=== PATIENT | male | born 1980 | race Caucasian/White ===

== ENCOUNTER 2018-09-19 17:55 | Emergency (ER) | payer SELFPAY ==
[~2018-09-19] VITALS: Ht 167.6 cm; Wt 86.2 kg
[2018-09-19] MEDS ORDERED: LACTATED RINGERS 1,000 ML IV ONE (18:31)
[2018-09-19] MEDS ORDERED: NS IV 1000 ML 1,000 ML ONE (18:33)
[2018-09-19 18:39] LABS: BASOPHILS # (AUTO) 0.1 10^3/uL (0.0-0.1); BASOPHILS % (AUTO) 1 % (0-10); EOSINOPHILS # (AUTO) 0.1 10^3/uL (0.0-0.3); EOSINOPHILS % (AUTO) 1 % (0-10); HEMATOCRIT 42 % (40-54); HEMOGLOBIN 14.2 G/DL (13.3-17.7); LYMPHOCYTES # (AUTO) 2.9 X 10^3 (1.0-4.0); LYMPHOCYTES % (AUTO) 42 % (12-44); MEAN CORPUSCULAR HEMOGLOBIN 29 PG (25-34); MEAN CORPUSCULAR HGB CONC 34 G/DL (32-36); MEAN CORPUSCULAR VOLUME 85 FL (80-99); MONOCYTES # (AUTO) 0.5 X 10^3 (0.0-1.0); MONOCYTES % (AUTO) 7 % (0-12); NEUTROPHILS # (AUTO) 3.4 X 10^3 (1.8-7.8); NEUTROPHILS % (AUTO) 49 % (42-75); PLATELET COUNT 272 10^3/uL (130-400); RED CELL DISTRIBUTION WIDTH 12.9 % (10.0-14.5)
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
[2018-09-19] MEDS ORDERED: NS IV 1000 ML 1,000 ML IV SCH (18:45)
--- NOTE | 2018-09-19 18:47 | NUR ---
PT TRANSPORTING TO CT VIA WC ACCOMAPNIED BY CT STAFF.
[2018-09-19 18:52] LABS: ALANINE AMINOTRANSFERASE 16 U/L (0-55); ALBUMIN 4.6 GM/DL (3.2-4.5); ALKALINE PHOSPHATASE 68 U/L (40-136); BILIRUBIN,TOTAL 0.3 MG/DL (0.1-1.0); BUN/CREATININE RATIO 14; CALCIUM 9.7 MG/DL (8.5-10.1); CARBON DIOXIDE 22 MMOL/L (21-32); CHLORIDE 106 MMOL/L (98-107); CREATININE SERUM 0.92 MG/DL (0.60-1.30); GFR ESTIMATED > 60; GLUCOSE 99 MG/DL (70-105); POTASSIUM 3.8 MMOL/L (3.6-5.0); SALICYLATE < 5.0 MG/DL (5.0-20.0); SODIUM 139 MMOL/L (135-145); TOTAL PROTEIN 7.5 GM/DL (6.4-8.2)
--- NOTE | 2018-09-19 18:55 | NUR ---
PT BACK TO ROOM AT THIS TIME.
[2018-09-19 18:58] LABS: ACETAMINOPHEN < 10 UG/ML (10-30)
--- NOTE | 2018-09-19 19:15 | Diagnostic Imaging Report ---
PROCEDURE: CT head without contrast. TECHNIQUE: Multiple contiguous axial images were obtained through the brain without the use of intravenous contrast. INDICATION: Altered mental status. I have no previous for comparison. There is no hydrocephalus and there is no intracranial hemorrhage. Motion degradation limits exam sensitivity and specificity. There is some questionable findings of loss of cortical mason-white matter differentiations and edema in the posterior cortex of the left parietal-occipital lobes; correlate clinically as subtle changes of evolving ischemia could not be excluded. Again, this may be merely reflective of artifact in this motion degraded study. No other potential acute finding. The basilar cisterns are patent. No evidence for elevated intracranial pressures. No abnormal extra-axial fluid collection. The orbits, sinuses, and calvarium unremarkable. IMPRESSION: Limited by motion. Peripheral hypodensity cortex left parieto-occipital lobe seen on images 12 through 18 and may be artifact or reflect subtle edema owing to an evolving ischemic insult. No other potential acute finding revealed. Dictated by: Dictated on workstation # [id number]
--- NOTE | 2018-09-19 19:25 | NUR ---
1924-URINE COLLECTED AND SENT TO LAB 1929- ASKED FOR BLANKET. TECH GAVE BLANKET. 2009-CHECKED IN ON PATIENT AND DENIED ANY NEEDS AT THIS TIME. INFORMED PATIENT AND THAT WE WERE AWAITING RESULTS OF TESTING. 2109- CAME OUT OF ROOM AND INQUIRED WHEN PATIENT WOULD BE SEEN AGAIN BY PHYSICIAN. INFORMED THAT PHYSICIAN IS BUSY WITH EMERGENCY SITUATION AND THAT HE WOULD BE IN SOON POSSIBLE. 2114- STATES THAT SHE WOULD LIKE TO TRANSFER PATIENT SINCE HE HAS "NOT BEEN TREATED". CALMLY EXPLAINED TO THAT THE DOCTOR HAS NOT HAD A CHANCE TO COME BACK AND DISCUSS TREATMENT DUE TO EMERGENT SITUATION. STATES "NO ONE HAS TOLD US THAT EARLIER AND NO ONE CHECKED ON HIM." CALMLY REPLIED TO THAT THIS WAS NOT TRUE I HAD BEEN IN AND ASKED IF THEY NEEDED ANYTHING. ASKED PATIENT TO SIGN AMA PAPERWORK AND STATES "HE IS NOT IN HIS RIGHT MIND TO SIGN ANY PAPERS" THIS RN RESPONDED THAT THEN "PERHAPS IT WOULD BE A GOOD IDEA TO WAIT FOR RESULTS OF TESTING THAT HAS ALREADY BEEN COMPLETED". ASKED THAT IV BE "KEPT IN FOR THE NEXT FACILITY". KANE NOLAN RESPONDED THAT THAT WAS NOT POSSIBLE IT WAS AGAINST THE LAW TO LEAVE IV IN. RESPONDED THAT SHE "KNOWS ALL ABOUT THE LAW." IV REMOVED, CATHETER INTACT. PATIENT ASSISTED TO WHEELCHAIR AND WHEELED OUT TO PRIVATE VEHICLE.
[2018-09-19 19:30] LABS: BILIRUBIN,URINE NEGATIVE (NEGATIVE); CLARITY,URINE CLEAR; COLOR,URINE YELLOW; GLUCOSE, URINE (UA) NEGATIVE (NEGATIVE); KETONES,URINE NEGATIVE (NEGATIVE); LEUKOCYTE ESTERASE ,URINE NEGATIVE (NEGATIVE); NITRITE,URINE NEGATIVE (NEGATIVE); PH,URINE 6 (5-9); PROTEIN,URINE NEGATIVE (NEGATIVE); UROBILINOGEN,URINE NORMAL (NORMAL)
[2018-09-19 19:36] LABS: BACTERIA,URINE NEGATIVE /HPF; SQUAMOUS EPITHELIAL CELL,UR RARE /HPF
[2018-09-19 19:44] LABS: AMPHETAMINE SCREEN, URINE NEGATIVE (NEGATIVE); BARBITURATE SCREEN URINE NEGATIVE (NEGATIVE); BENZODIAZEPINES SCREEN URINE NEGATIVE (NEGATIVE); CANNABINOID SCREEN, URINE NEGATIVE (NEGATIVE); COCAINE SCREEN URINE NEGATIVE (NEGATIVE); METHADONE STAT NEGATIVE (NEGATIVE); METHAMPHETAMINE SCREEN URINE S NEGATIVE (NEGATIVE); OPIATE SCREEN URINE NEGATIVE (NEGATIVE); OXYCODONE STAT NEGATIVE (NEGATIVE); PROPOXYPHENE STAT NEGATIVE (NEGATIVE); TRICYCLIC ANTIDEPRESSANTS SCRE NEGATIVE (NEGATIVE)
--- NOTE | 2018-09-19 19:55 | Diagnostic Imaging Report ---
INDICATION: Shortness of breath FINDINGS: The lungs are clear. The heart and vessels normal. There is no effusion or pneumothorax. IMPRESSION: No acute appearing abnormality. Dictated by: Dictated on workstation # [id number]
[2018-09-19 21:15] VITALS: BP 118/80
== END 2018-09-19 21:25 | disposition left against medical advice (07) ==
LOC: ER 17:57
DX: G93.40 Encephalopathy, unspecified (principal); F17.290 Nicotine dependence, other tobacco product, uncomplicated; Z87.820 Personal history of traumatic brain injury; Z88.0 Allergy status to penicillin
CPT/HCPCS: 36415; 70450; 71045; 80053; 80306; 80320; 80329; 81000; 84443; 85025; 93005; 93041

== ENCOUNTER 2018-09-19 22:09 | Emergency (ER) | payer SELFPAY ==
[~2018-09-19] VITALS: Ht 168.9 cm; Wt 86.2 kg
--- NOTE | 2018-09-19 23:00 | ED Neurological Problem ---
General Chief Complaint: Altered Mental Status Stated Complaint: DIZZINESS-CONFUSED Nursing Triage Note: Pt was brought in by private vehicle for chief complaint of dizziness/confusion by significant other. Pt around 1700 was confused, headache (since yesterday), dizziness and went to [facility]. They stated they left, because they would not read them results. Significant other stated that head has been hurting since yesterday, throbbing, pressure, stabbing. Sig other stated he has been hysterical, laughing randomly (which he did in the room). Pt is alert, answers questions when asked, but takes a few seconds to reply. Pt is ambulatory and walked to bathroom with assitance of sig other. Nursing Sepsis Screen: No Definite Risk Source: patient History of Present Illness Date Seen by Provider: Sep 19, 2018 Time Seen by Provider: 22:25 Initial Comments 38-year-old male brought in by altered mental status. His reports he just acting confused and on. Patient complains of left head pain that is hypersensitive and reports that if he presses on it feels better. He reports these had a headache for about 4 days. That around 5 PM this evening they were in [place] where they were eating. He went to the restroom and when he came back he was confused and had this bizarre blood. Patient and family with the [facility] in [place] where they had a workup that was done including labs urinalysis urine drug screen. CT head. The family became irritated because they felt things were not being done fast enough and left and came up here. Review of the workup is essentially negative outside of a hypodensity/edema on the cortices in the left occipital parietal lobe. This is similar to the area in which the patient is describing his headache. patient denies any drug use. He does have a past history of a TBI when he was 21. he did have one episode of vomiting. Allergies and Home Medications Allergies Coded Allergies: Penicillins (Verified Allergy, Unknown, 09/19/18) Patient Home Medication List Home Medication List Reviewed: Yes Review of Systems Review of Systems Constitutional: No dizziness, No fever Eyes: No Symptoms Reported Respiratory: No cough Cardiovascular: No chest pain Gastrointestinal: vomiting Genitourinary: no symptoms reported Musculoskeletal: no symptoms reported Psychiatric/Neurological: Other (History see history of present illness) Endocrine: No Symptoms Reported Hematologic/Lymphatic: No Symptoms Reported Past Swzrudx-Yldsgp-Uxjryl Hx Past Med/Social Hx: Reviewed Nursing Past Med/Soc Hx Patient Social History Alcohol Use: Occasionally Uses Recreational Drug Use: No Type Used: Electronic/Vapor 2nd Hand Smoke Exposure: Yes Recent Foreign Travel: No Contact w/Someone Who Travel: No Recent Infectious Disease Expo: No Recent Hopitalizations: No Physical Abuse: No Sexual Abuse: No Mistreated: No Fear: No Seasonal Allergies Seasonal Allergies: No Past Medical History Surgeries: No Respiratory: No Cardiac: No Neurological: Yes (CONCUSSIONS) Genitourinary: No Gastrointestinal: No Musculoskeletal: No Endocrine: No HEENT: No Cancer: No Psychosocial: No Integumentary: No Blood Disorders: No Physical Exam Vital Signs Vital Signs - First Documented 09/19/18 22:41 Temp 96.7 Pulse 58 Resp 20 B/P (MAP) 125/82 (96) Pulse Ox 96 O2 Delivery Room Air Capillary Refill : Less Than 3 Seconds Height, Weight, BMI Height: 5'6.50" Weight: 190lbs. 0oz. 86.705271nc; BMI Method:Stated General Appearance: WD/WN, no apparent distress, other (Patient does present with a bizarre affect, well frantically start last evening and has everywhere. Which she just looks at you but is also very easily irritable.) Neck: non-tender, supple Respiratory: chest non-tender, lungs clear, normal breath sounds, no respiratory distress Cardiovascular: normal peripheral pulses, regular rate, rhythm Gastrointestinal: non tender, soft Neurologic/Psychiatric: grant coordinator II-XII nml as tested, other (Abnormal affect, pressured speech, very volatile, will just burst out laughing.) Crainal Nerves: normal hearing, normal speech, PERRL; No facial droop, No facial weakness Coordination/Gait: normal finger to nose, normal gait Motor/Sensory: no motor deficit, no sensory deficit Skin: normal color, warm/dry Lymphatic: no adenopathy Progress/Results/Core Measures Results/Orders Vital Signs/I&O 09/19/18 09/19/18 22:41 23:26 Temp 96.7 Pulse 58 58 Resp 20 B/P (MAP) 125/82 (96) 119/71 (87) Pulse Ox 96 97 O2 Delivery Room Air Room Air Blood Pressure Mean: 96 Departure Impression Primary Impression: Altered mental status Qualified Codes: R41.82 - Altered mental status, unspecified Additional Impression: Abnormal CT scan, head Disposition: XFER SHT-TRM HOSP Condition: Stable Transfer Time Spoke to Accepting Phy: 23:30 Transfer Progress Notes Discussed with neurologist Dr. Middleton and accepting hospitalist Dr. Carreon patient to be transferred to [facility] for further evaluation. Patient is transferred in stable condition. Method of Transfer: EMS Departure-Patient Inst. Referrals: NO,LOCAL PHYSICIAN (PCP/Family) Primary Care Physician IDA POSEY DO Sep 19, 2018 23:00
[2018-09-19 23:26] VITALS: BP 119/71
[2018-09-20 00:23] VITALS: BP 117/73
--- NOTE | 2018-09-20 00:34 | NUR ---
EMS arrived at this time. Report was given and care was transferred.
== END 2018-09-20 00:35 | disposition short-term general hospital (02) ==
LOC: EDUNIT# 22:09 → ER FS 22:12
DX: R41.82 Altered mental status, unspecified (principal); R93.0 Abnormal findings on diagnostic imaging of skull and head, not elsewhere classified; Z77.22 Contact with and (suspected) exposure to environmental tobacco smoke (acute) (chronic); Z88.0 Allergy status to penicillin

== ENCOUNTER 2019-09-26 00:54 | Emergency (ER) | payer OTHER ==
[~2019-09-26] VITALS: Ht 172.7 cm; Wt 82.8 kg
[2019-09-26 01:09] VITALS: BP 138/105
--- NOTE | 2019-09-26 01:12 | ED Back Pain ---
General Chief Complaint: Back Problems Stated Complaint: FELL AT WORK History of Present Illness Date Seen by Provider: Sep 26, 2019 Time Seen by Provider: 01:10 Initial Comments This patient is a 39-year-old male presents to the emerge department complaining of low back pain with left-sided sciatica. 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 Patient does have significant pain in the left side of his back and seems to be shooting down his left leg. Patient states he does have sometimes a backache and he suggested that the chiropractor and improvement. Has never had anything like this. We'll do a medical evaluation treatment as needed. Patient requests not to be given any narcotic pain medication he has however agreeable to take a muscle relaxer. Location: Lumbar Spine Timing/Duration: 1/2 Hour Severity: Moderate Pain/Injury Location: Back Radiation: Upper Legs (on the left) Allergies and Home Medications Allergies Coded Allergies: Penicillins (Verified Allergy, Unknown, 09/19/18) Home Medications Cyclobenzaprine HCl 10 Mg Tablet, 10 MG PO BID PRN for PAIN-MILD (1-4) Prescribed by: SOURAV SALAS on 09/26/19116 Diclofenac Sodium 75 Mg Tablet.dr, 75 MG PO BID PRN for PAIN-MODERATE (5-7) Prescribed by: SOURAV SALAS on 09/26/19116 Patient Home Medication List Home Medication List Reviewed: Yes Review of Systems Constitutional: no symptoms reported, see HPI; No chills, No diaphoresis, No dizziness, No fever, No malaise, No weakness, No weight gain, No weight loss, No other EENTM: see HPI; No no symptoms reported, No ear discharge, No hearing loss, No ear pain, No blurred vision, No double vision, No eye pain, No tearing, No vision loss, No dental problems, No hoarseness, No mouth pain, No mouth swelling, No epistaxis, No nose congestion, No nose pain, No throat pain, No throat swelling, No other Respiratory: No no symptoms reported; see HPI; No cough, No dyspnea on exertion, No hemoptysis, No orthopnea, No phlegm, No short of breath, No stridor, No wheezing, No other Cardiovascular: no symptoms reported Gastrointestinal: no symptoms reported Genitourinary: no symptoms reported Musculoskeletal: No no symptoms reported; see HPI, back pain; No gout, No joint pain, No joint swelling, No muscle pain, No muscle stiffness, No muscle cramps, No muscle twitching, No muscle weakness, No neck pain, No other All Other Systems Reviewed Negative Unless Noted: Yes Past Ynktvjo-Vdejbl-Lehlwd Hx Patient Social History Type Used: Electronic/Vapor 2nd Hand Smoke Exposure: Yes Recent Foreign Travel: No Contact w/Someone Who Travel: No Recent Hopitalizations: No Seasonal Allergies Seasonal Allergies: No Past Medical History Surgeries: No Respiratory: No Cardiac: No Neurological: Yes (CONCUSSIONS) Genitourinary: No Gastrointestinal: No Musculoskeletal: No Endocrine: No HEENT: No Cancer: No Psychosocial: No Integumentary: No Blood Disorders: No Physical Exam Vital Signs Vital Signs - First Documented 09/26/19 01:09 Temp 36.2 Pulse 75 Resp 16 B/P (MAP) 138/105 (116) Pulse Ox 98 O2 Delivery Room Air Capillary Refill : Height, Weight, BMI Height: 5'6.50" Weight: 190lbs. 0oz. 86.288399fp; BMI Method:Stated General Appearance: No Apparent Distress, WD/WN HEENT: PERRL/EOMI, TMs Normal, Normal ENT Inspection, Pharynx Normal Neck: Full Range of Motion, Normal Inspection, Non Tender, Supple Cardiovascular: Regular Rate, Rhythm, No Edema, No Gallop, No JVD, No Murmur, Normal Peripheral Pulses Gastrointestinal: Normal Bowel Sounds, No Organomegaly, No Pulsatile Mass, Non Tender, Soft Back: Decreased Range of Motion, Muscle Spasm (left low back spasm.) Progress/Results/Core Measures Results/Orders My Orders Orders - SOURAV SALAS MD Lumbar Spine 2 Or 3 View (09/26/19 01:09) Orphenadrine Injection (Norflex Injectio (09/26/19 01:15) Medications Given in ED Current Medications Medications Dose Ordered Sig/Ana Route Start Time Stop Time Status Last Admin Dose Admin Orphenadrine Citrate 60 mg ONCE ONCE IM 09/26/19 01:15 09/26/19 01:16 DC 09/26/19 01:23 60 MG Vital Signs/I&O 09/26/19 01:09 Temp 36.2 Pulse 75 Resp 16 B/P (MAP) 138/105 (116) Pulse Ox 98 O2 Delivery Room Air Progress Progress Note : Progress Note Patient much improved after IM Norflex. Diagnostic Imaging Diagonstic Imaging: Xray Plain Films/CT/US/NM/MRI: other (negative x-rays lumbar spine.) Departure Impression Primary Impression: Back pain Additional Impressions: Lumbar radiculopathy Spasm of back muscles Disposition: 01 HOME, SELF-CARE Condition: Improved Departure-Patient Inst. Referrals: NO,LOCAL PHYSICIAN (PCP/Family) Primary Care Physician Patient Instructions: Lumbar Muscle Strain (DC), Low Back Pain (DC), Radiculopathy (DC) Add. Discharge Instructions: Alternate heat and ice, stretching exercises as instructed. Flexeril and diclofenac as needed for pain. Follow-up with your primary care physician for any further evaluation. No heavy lifting for the next 1 week. All discharge instructions reviewed with patient and/or family. Voiced understanding. Scripts Cyclobenzaprine HCl (Cyclobenzaprine HCl) 10 Mg Tablet 10 MG PO BID PRN for PAIN-MILD (1-4) for 3 Days, #6 TAB 0 Refills Prov: SOURAV SALAS MD 09/26/19 Diclofenac Sodium (Diclofenac Sodium) 75 Mg Tablet.dr 75 MG PO BID PRN for PAIN-MODERATE (5-7) for 10 Days, #20 TAB 0 Refills Prov: SOURAV SALAS MD 09/26/19 Work/School Note: Family Work Note Patient Received Medical Care In the Emergency Department On: Sep 26, 2019 Patient Will Be Able to Return to Work/School On: Sep 28, 2019 Patient Restrictions: No heavy lifting greater than 10 pounds. For one week. SOURAV SALAS MD Sep 26, 2019 01:12
[2019-09-26] MEDS ORDERED: ORPHENADRINE 60 MG/2 ML (NORFLEX) AMP IM ONE (01:15)
[2019-09-26] MEDS ORDERED: DICL75TA2 PO (01:17)
[2019-09-26] MEDS ORDERED: CYCL10TA9 PO (01:17)
--- NOTE | 2019-09-26 05:35 | Diagnostic Imaging Report ---
INDICATION: Fall. Back pain. COMPARISON: None FINDINGS: Frontal and lateral views of the lumbar spine were obtained. Alignment and vertebral heights are maintained. There is no fracture or destructive process. Minimal multilevel degenerative disease is noted in the lumbar spine. Limited views of the abdomen demonstrate nonobstructive bowel gas pattern. IMPRESSION: 1. No acute fracture or dislocation of the lumbar spine. Dictated by: Dictated on workstation # [id number]
--- OUTSIDE RECORDS SUMMARY | 2019-09-28 12:30 | XMS REPORT ---
Author Author Amando TOLBERT Organization [facility] Address [address] [place] [address] Care Team Providers Care Garbage Worker Name Role Phone ANA TOLBERT Unavailable PROBLEMS Type Condition ICD9-CM Code [id number] Code Onset Dates Condition S tatus SNOMED Code Problem Migraine with aura and without status migrainosu s, not intractable G43.109 Active 9639309 ALLERGIES No Information ENCOUNTERS Encounter Location Date Diagnosis [facility] [address] [place] [address] Sep, Drug screening, pre-employment Z02.[address] [address] Sep, Migraine with aura and without status mi grainosus, not intractable G43.[address] [address] Sep, IMMUNIZATIONS No Known Immunizations SOCIAL HISTORY Never Assessed REASON FOR VISIT Medication question PLAN OF CARE VITAL SIGNS MEDICATIONS Unknown Medications RESULTS No Results PROCEDURES No Known procedures INSTRUCTIONS MEDICATIONS ADMINISTERED No Known Medications MEDICAL (GENERAL) HISTORY Type Description Date Medical History Migraines Hospitalization History [facility] 09/2018
--- OUTSIDE RECORDS SUMMARY | 2019-09-28 12:30 | XMS REPORT ---
Author Author Amando TOLBERT Organization [facility] Address [address] [place] [address] Care Team Providers Care Fish Pitcher Name Role Phone ANA TOLBERT Unavailable PROBLEMS Type Condition ICD9-CM Code [id number] Code Onset Dates Condition S tatus SNOMED Code Problem Migraine with aura and without status migrainosu s, not intractable G43.109 Active [id number] ALLERGIES Substance Reaction Event Type Date Status Penicillin G Sodium Unknown Drug Allergy Sep, Active ENCOUNTERS Encounter Location Date Diagnosis [facility] [id number] [place] [id number] Sep, Drug screening, pre-employment Z02.[address] [address] Sep, Migraine with aura and without status mi grainosus, not intractable G43.[address] [address] Sep, IMMUNIZATIONS No Known Immunizations SOCIAL HISTORY Never Assessed REASON FOR VISIT Hospital F/U- [facility] (dizzy, Disoriented, Migraine) PLAN OF CARE Activity Details Follow Up prn Reason: VITAL SIGNS Height 5ft 7in in 2018-09-27 Weight 195lb lbs 2018-09-27 BMI 30.54 kg/m2 2018-09-27 Blood pressure systolic 114 mmHg 2018-09-27 Blood pressure diastolic 66 mmHg 2018-09-27 MEDICATIONS Medication Instructions Dosage Frequency Start Date End Date Duration S tatus Imitrex 100 MG Orally Twice a day 1 tablet as needed 12h 11 Sep, 201 9 30 days Active RESULTS No Results PROCEDURES No Known procedures INSTRUCTIONS MEDICATIONS ADMINISTERED No Known Medications MEDICAL (GENERAL) HISTORY Type Description Date Medical History Migraines Hospitalization History [facility] 09/2018
== END 2019-09-26 01:38 | disposition home or self-care (01) ==
LOC: EDUNIT# 00:54 → ER FS 00:58
DX: M54.16 Radiculopathy, lumbar region (principal); M62.830 Muscle spasm of back; Z88.0 Allergy status to penicillin; W01.0XXA Fall on same level from slipping, tripping and stumbling without subsequent striking against object, initial encounter; Y92.59 Other trade areas as the place of occurrence of the external cause
CPT/HCPCS: 72100

== ENCOUNTER 2021-02-23 12:49 | Emergency (ER) | payer OTHER ==
[~2021-02-23 12:49] MED LIST: CYCL10TA9 PO; DICL75TA2 PO
== END 2021-02-23 13:08 | disposition left against medical advice (07) ==
LOC: EDUNIT# 12:49 → ER FS 12:54
DX: R45.851 Suicidal ideations (principal)

== ENCOUNTER 2021-02-23 13:27 | Emergency (ER) | payer OTHER ==
[~2021-02-23] VITALS: Ht 177.8 cm; Wt 90.7 kg
--- NOTE | 2021-02-23 14:19 | ED Psychosocial ---
General Chief Complaint: Psych/Social Disorder Stated Complaint: SUICIDAL Nursing Triage Note: PT AMBULATE TO ROOM FS04 WITH C/O SUICIDAL THOUGHTS. PT STATES THAT HE HAS BEEN HAVING SUICIDAL THOUGHTS FOR A FEW MONTHS. PT DENIES ANY PLAN. PT STATES THAT HE "JUST WANTS TO GO BACK TO [facility]". PT HAD PRESENTED TO THIS ED EARLIER IN THE DAY AND LWBS. PT BROUGHT BACK TO ED BY AND FSPD. PT WAS PICKED UP AT A LOCAL [facility]. History of Present Illness Date Seen by Provider: Feb 23, 2021 Time Seen by Provider: 14:00 Initial Comments 40-year-old male presents with suicidal ideation without attempt. States has been going on for a few months and he feels like nobody cares about him. States "I just get in my head and cannot stop". Is not currently seeing a counselor today just wanted to go to latter day where he can be alone. See nurse's note above, previously the ER few hours earlier and then brought in by police, but patient was cooperative. Allergies and Home Medications Allergies Coded Allergies: Penicillins (Verified Allergy, Unknown, 09/19/18) Home Medications Cyclobenzaprine HCl 10 Mg Tablet, 10 MG PO BID PRN for PAIN-MILD (1-4) Prescribed by: SOURAV SALAS on 09/26/19116 Diclofenac Sodium 75 Mg Tablet.dr, 75 MG PO BID PRN for PAIN-MODERATE (5-7) Prescribed by: SOURAV SALAS on 09/26/19116 Patient Home Medication List Home Medication List Reviewed: Yes Review of Systems Constitutional: No fever, No malaise, No weakness Respiratory: No cough, No short of breath Cardiovascular: No chest pain, No edema, No palpitations Gastrointestinal: No abdominal pain, No nausea, No vomiting Musculoskeletal: No back pain, No joint pain Skin: No change in color, No rash Past Ojdixtr-Nailjy-Jijydq Hx Patient Social History Tobacco Use?: Yes Tobacco type used: Cigarettes Smoking Status: Current Everyday Smoker Substance use?: No Alcohol Use?: No Seasonal Allergies Seasonal Allergies: No Past Medical History Surgeries: No Respiratory: No Cardiac: No Neurological: Yes (CONCUSSIONS) Genitourinary: No Gastrointestinal: No Musculoskeletal: No Endocrine: No HEENT: No Cancer: No Psychosocial: No Integumentary: No Blood Disorders: No Physical Exam Vital Signs - First Documented 02/23/21 13:53 Temp 37.6 Pulse 82 Resp 18 B/P (MAP) 122/88 (99) O2 Delivery Room Air Capillary Refill : Less Than 3 Seconds Height, Weight, BMI Height: 5'6.50" Weight: 190lbs. 0oz. 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, no motor/sensory deficits, alert, normal mood/affect, oriented x 3 Appearance/Memory: appropriate appearance, appropriate insight, neat, no memory impairment Behavior/Eye Contact: cooperative, good eye contact, normal speech Thoughts/Hallucinations: normal thought pattern, no apparent hallucination Skin: normal color, warm/dry Progress/Results/Core Measures Results/Orders Lab Results Laboratory Tests Test 02/23/21 14:19 02/23/21 14:20 Range/Units White Blood Count 6.6 4.3-11.0 10^3/uL Red Blood Count 5.27 4.35-5.85 10^6/uL Hemoglobin 15.2 13.3-17.7 G/DL Hematocrit 44 40-54 % Mean Corpuscular Volume 84 80-99 FL Mean Corpuscular Hemoglobin 29 25-34 PG Mean Corpuscular Hemoglobin Concent 34 32-36 G/DL Red Cell Distribution Width 12.8 10.0-14.5 % Platelet Count 299 130-400 10^3/uL Mean Platelet Volume 9.4 7.4-10.4 FL Immature Granulocyte % (Auto) 0 % Neutrophils (%) (Auto) 69 42-75 % Lymphocytes (%) (Auto) 22 12-44 % Monocytes (%) (Auto) 7 0-12 % Eosinophils (%) (Auto) 1 0-10 % Basophils (%) (Auto) 1 0-10 % Neutrophils # (Auto) 4.6 1.8-7.8 X 10^3 Lymphocytes # (Auto) 1.4 1.0-4.0 X 10^3 Monocytes # (Auto) 0.5 0.0-1.0 X 10^3 Eosinophils # (Auto) 0.1 0.0-0.3 10^3/uL Basophils # (Auto) 0.1 0.0-0.1 10^3/uL Immature Granulocyte # (Auto) 0.0 0.0-0.1 10^3/uL Sodium Level 137 135-145 MMOL/L Potassium Level 3.8 3.6-5.0 MMOL/L Chloride Level 105 98-107 MMOL/L Carbon Dioxide Level 21 21-32 MMOL/L Anion Gap 11 5-14 MMOL/L Blood Urea Nitrogen 11 7-18 MG/DL Creatinine 0.88 0.60-1.30 MG/DL Estimat Glomerular Filtration Rate 96 BUN/Creatinine Ratio 13 Glucose Level 126 H 70-105 MG/DL Calcium Level 9.5 8.5-10.1 MG/DL Corrected Calcium 8.5-10.1 MG/DL Total Bilirubin 0.8 0.1-1.0 MG/DL Aspartate Amino Transf (AST/SGOT) 21 5-34 U/L Alanine Aminotransferase (ALT/SGPT) 31 0-55 U/L Alkaline Phosphatase 99 40-136 U/L Total Protein 7.8 6.4-8.2 GM/DL Albumin 4.6 H 3.2-4.5 GM/DL Salicylates Level < 0.3 L 5.0-20.0 MG/DL Acetaminophen Level < 10 L 10-30 UG/ML Serum Alcohol < 10 <10 MG/DL Urine Opiates Screen NEGATIVE NEGATIVE Urine Oxycodone Screen NEGATIVE NEGATIVE Urine Methadone Screen NEGATIVE NEGATIVE Urine Propoxyphene Screen NEGATIVE NEGATIVE Urine Barbiturates Screen NEGATIVE NEGATIVE Ur Tricyclic Antidepressants Screen NEGATIVE NEGATIVE Urine Phencyclidine Screen NEGATIVE NEGATIVE Urine Amphetamines Screen NEGATIVE NEGATIVE Urine Methamphetamines Screen NEGATIVE NEGATIVE Urine Benzodiazepines Screen NEGATIVE NEGATIVE Urine Cocaine Screen NEGATIVE NEGATIVE Urine Cannabinoids Screen NEGATIVE NEGATIVE My Orders Orders - ROVENSTINE,TANESHA L DO Cbc With Automated Diff (02/23/21 13:54) Comprehensive Metabolic Panel (02/23/21 13:54) Drug Screen Stat (Urine) (02/23/21 13:54) Acetaminophen (02/23/21 13:54) Salicylate (02/23/21 13:54) Alcohol (02/23/21 13:54) Vital Signs/I&O 02/23/21 13:53 Temp 37.6 Pulse 82 Resp 18 B/P (MAP) 122/88 (99) O2 Delivery Room Air Blood Pressure Mean: 99 Departure Impression Primary Impression: Depression Qualified Codes: F32.9 - Major depressive disorder, single episode, unspecified Additional Impression: Suicidal ideation Disposition: 01 HOME, SELF-CARE Condition: Stable Departure-Patient Inst. Decision time for Depature: 17:47 Referrals: NO,LOCAL PHYSICIAN (PCP/Family) Primary Care Physician Patient Instructions: Depression, Adult ED Add. Discharge Instructions: You are advised to seek a local counselor Follow up as instructed by the mental health screener today. Return to the ER for any worsening of your condition All discharge instructions reviewed with patient and/or family. Voiced u nderstanding. TANEHSA RIOS DO Feb 23, 2021 14:19
[2021-02-23 14:25] LABS: WHITE BLOOD COUNT 6.6 10^3/uL (4.3-11.0)
[2021-02-23 14:26] LABS: BASOPHILS # (AUTO) 0.1 10^3/uL (0.0-0.1); BASOPHILS % (AUTO) 1 % (0-10); EOSINOPHILS # (AUTO) 0.1 10^3/uL (0.0-0.3); EOSINOPHILS % (AUTO) 1 % (0-10); HEMATOCRIT 44 % (40-54); HEMOGLOBIN 15.2 G/DL (13.3-17.7); LYMPHOCYTES # (AUTO) 1.4 X 10^3 (1.0-4.0); LYMPHOCYTES % (AUTO) 22 % (12-44); MEAN CORPUSCULAR HEMOGLOBIN 29 PG (25-34); MEAN CORPUSCULAR HGB CONC 34 G/DL (32-36); MEAN CORPUSCULAR VOLUME 84 FL (80-99); MEAN PLATELET VOLUME 9.4 FL (7.4-10.4); MONOCYTES # (AUTO) 0.5 X 10^3 (0.0-1.0); MONOCYTES % (AUTO) 7 % (0-12); NEUTROPHILS # (AUTO) 4.6 X 10^3 (1.8-7.8); NEUTROPHILS % (AUTO) 69 % (42-75); PLATELET COUNT 299 10^3/uL (130-400)
[2021-02-23 14:40] LABS: AMPHETAMINE SCREEN, URINE NEGATIVE (NEGATIVE); BARBITURATE SCREEN URINE NEGATIVE (NEGATIVE); BENZODIAZEPINES SCREEN URINE NEGATIVE (NEGATIVE); CANNABINOID SCREEN, URINE NEGATIVE (NEGATIVE); COCAINE SCREEN URINE NEGATIVE (NEGATIVE); METHADONE STAT NEGATIVE (NEGATIVE); METHAMPHETAMINE SCREEN URINE S NEGATIVE (NEGATIVE); OPIATE SCREEN URINE NEGATIVE (NEGATIVE); OXYCODONE STAT NEGATIVE (NEGATIVE); PROPOXYPHENE STAT NEGATIVE (NEGATIVE); TRICYCLIC ANTIDEPRESSANTS SCRE NEGATIVE (NEGATIVE)
[2021-02-23 14:44] LABS: ACETAMINOPHEN < 10 UG/ML (10-30); ALANINE AMINOTRANSFERASE 31 U/L (0-55); ALBUMIN 4.6 GM/DL (3.2-4.5); ALKALINE PHOSPHATASE 99 U/L (40-136); BILIRUBIN,TOTAL 0.8 MG/DL (0.1-1.0); BUN/CREATININE RATIO 13; CALCIUM 9.5 MG/DL (8.5-10.1); CARBON DIOXIDE 21 MMOL/L (21-32); CHLORIDE 105 MMOL/L (98-107); CREATININE SERUM 0.88 MG/DL (0.60-1.30); GFR ESTIMATED 96; GLUCOSE 126 MG/DL (70-105); POTASSIUM 3.8 MMOL/L (3.6-5.0); SALICYLATE < 0.3 MG/DL (5.0-20.0); SODIUM 137 MMOL/L (135-145); TOTAL PROTEIN 7.8 GM/DL (6.4-8.2)
[2021-02-23 17:55] VITALS: BP 134/66
== END 2021-02-23 17:55 | disposition home or self-care (01) ==
LOC: EDUNIT# 13:27 → ER FS 13:29
DX: F32.9 Major depressive disorder, single episode, unspecified (principal); R45.851 Suicidal ideations; F17.210 Nicotine dependence, cigarettes, uncomplicated
CPT/HCPCS: 36415; 80053; 80306; 85025; 99283; G0480 ×3; 80320; 80329

== ENCOUNTER 2022-03-03 19:34 | Emergency (ER) | payer OTHER ==
[~2022-03-03 19:34] MED LIST changes: +CYCL10TA25 PO; -CYCL10TA9 PO
--- NOTE | 2022-03-03 19:37 | ED GU-Male ---
General Stated Complaint: ABD PAIN,TROUBLE URINATING History of Present Illness Date Seen by Provider: Mar 03, 2022 Time Seen by Provider: 19:37 Initial Comments 41-year-old male is here with complaints of inability to pass urine and right flank pain which has moved to his right sided abdomen. Patient started developing right flank pain with intermittent difficulty in urination 2 days ago, with complete resolution by yesterday evening. Today morning the pain started again and moved to his right sided front abdomen. Denies dysuria, hematuria, fever, nausea and vomiting. Allergies and Home Medications Allergies Coded Allergies: Penicillins (Verified Allergy, Unknown, 09/19/18) Patient Home Medication List Home Medication List Reviewed: Yes Cyclobenzaprine HCl (Cyclobenzaprine HCl) 10 Mg Tablet, 10 MG PO BID PRN for PAIN-MILD (1-4) Prescribed by: SOURAV SALAS on 09/26/19116 Diclofenac Sodium (Diclofenac Sodium) 75 Mg Tablet.dr, 75 MG PO BID PRN for PAIN-MODERATE (5-7) Prescribed by: SOURAV SALAS on 09/26/19116 Review of Systems Review of Systems Constitutional: no symptoms reported EENTM: no symptoms reported Respiratory: no symptoms reported Cardiovascular: no symptoms reported Gastrointestinal: no symptoms reported Genitourinary: flank pain, urgency Musculoskeletal: no symptoms reported Skin: no symptoms reported Psychiatric/Neurological: No Symptoms Reported Endocrine: No Symptoms Reported Hematologic/Lymphatic: No Symptoms Reported Past Kesyknu-Ohwnup-Wahvam Hx Seasonal Allergies Seasonal Allergies: No Past Medical History Surgeries: No Respiratory: No Cardiac: No Neurological: Yes (CONCUSSIONS) Genitourinary: No Gastrointestinal: No Musculoskeletal: No Endocrine: No HEENT: No Cancer: No Psychosocial: No Integumentary: No Blood Disorders: No Physical Exam Vital Signs Vital Signs - First Documented 03/03/22 19:38 Temp 36.2 Pulse 61 Resp 16 B/P (MAP) 127/83 (98) Pulse Ox 97 O2 Delivery Room Air Capillary Refill : Height, Weight, BMI Height: 5'6.50" Weight: 190lbs. 0oz. 86.247930lf; 28.00 BMI Method:Stated General Appearance: mild distress HEENT: PERRL/EOMI Neck: full range of motion Cardiovascular: normal peripheral pulses, regular rate, rhythm Respiratory: chest non-tender, lungs clear, normal breath sounds Gastrointestinal: normal bowel sounds, soft, tenderness (in right side in RLQ) Back: normal inspection, no CVA tenderness, no vertebral tenderness Neurologic/Psychiatric: alert, normal mood/affect, oriented x 3 Skin: normal color Lymphatic: no adenopathy Progress/Results/Core Measures Suspected Sepsis SIRS Temperature: Pulse: Respiratory Rate: Laboratory Tests 03/03/22 19:38: White Blood Count 7.6 Blood Pressure / Mean: Laboratory Tests 03/03/22 19:38: Creatinine 0.94, Platelet Count 261, Total Bilirubin 0.2 Results/Orders Lab Results Laboratory Tests Test 03/03/22 19:38 Range/Units White Blood Count 7.6 4.3-11.0 10^3/uL Red Blood Count 4.97 4.30-5.52 10^6/uL Hemoglobin 14.5 13.3-17.7 g/dL Hematocrit 41 40-54 % Mean Corpuscular Volume 83 80-99 fL Mean Corpuscular Hemoglobin 29 25-34 pg Mean Corpuscular Hemoglobin Concent 35 32-36 g/dL Red Cell Distribution Width 12.9 10.0-14.5 % Platelet Count 261 130-400 10^3/uL Mean Platelet Volume 9.7 9.0-12.2 fL Immature Granulocyte % (Auto) 0 % Neutrophils (%) (Auto) 51 42-75 % Lymphocytes (%) (Auto) 38 12-44 % Monocytes (%) (Auto) 9 0-12 % Eosinophils (%) (Auto) 1 0-10 % Basophils (%) (Auto) 1 0-10 % Neutrophils # (Auto) 3.8 1.8-7.8 10^3/uL Lymphocytes # (Auto) 2.9 1.0-4.0 10^3/uL Monocytes # (Auto) 0.7 0.0-1.0 10^3/uL Eosinophils # (Auto) 0.1 0.0-0.3 10^3/uL Basophils # (Auto) 0.1 0.0-0.1 10^3/uL Immature Granulocyte # (Auto) 0.0 0.0-0.1 10^3/uL Urine Color YELLOW Urine Clarity CLEAR Urine pH 6.0 5-9 Urine Specific [place] 1.025 H 1.016-1.022 Urine Protein NEGATIVE NEGATIVE Urine Glucose (UA) NEGATIVE NEGATIVE Urine Ketones NEGATIVE NEGATIVE Urine Nitrite NEGATIVE NEGATIVE Urine Bilirubin NEGATIVE NEGATIVE Urine Urobilinogen 0.2 < = 1.0 MG/DL Urine Leukocyte Esterase NEGATIVE NEGATIVE Urine RBC (Auto) NEGATIVE NEGATIVE Urine RBC NONE /HPF Urine WBC RARE /HPF Urine Squamous Epithelial Cells RARE /HPF Urine Crystals NONE /LPF Urine Bacteria NEGATIVE /HPF Urine Casts NONE /LPF Urine Mucus LARGE H /LPF Urine Culture Indicated NO Sodium Level 141 135-145 MMOL/L Potassium Level 4.0 3.6-5.0 MMOL/L Chloride Level 106 98-107 MMOL/L Carbon Dioxide Level 24 21-32 MMOL/L Anion Gap 11 5-14 MMOL/L Blood Urea Nitrogen 18 7-18 MG/DL Creatinine 0.94 0.60-1.30 MG/DL Estimat Glomerular Filtration Rate 104 BUN/Creatinine Ratio 19 Glucose Level 93 70-105 MG/DL Calcium Level 9.7 8.5-10.1 MG/DL Corrected Calcium 8.5-10.1 MG/DL Total Bilirubin 0.2 0.1-1.0 MG/DL Aspartate Amino Transf (AST/SGOT) 20 5-34 U/L Alanine Aminotransferase (ALT/SGPT) 34 0-55 U/L Alkaline Phosphatase 83 40-136 U/L Total Protein 7.6 6.4-8.2 GM/DL Albumin 4.9 H 3.2-4.5 GM/DL Urine Opiates Screen POSITIVE H NEGATIVE Urine Oxycodone Screen NEGATIVE NEGATIVE Urine Methadone Screen NEGATIVE NEGATIVE Urine Propoxyphene Screen NEGATIVE NEGATIVE Urine Barbiturates Screen NEGATIVE NEGATIVE Ur Tricyclic Antidepressants Screen NEGATIVE NEGATIVE Urine Phencyclidine Screen NEGATIVE NEGATIVE Urine Amphetamines Screen NEGATIVE NEGATIVE Urine Methamphetamines Screen NEGATIVE NEGATIVE Urine Benzodiazepines Screen NEGATIVE NEGATIVE Urine Cocaine Screen NEGATIVE NEGATIVE Urine Cannabinoids Screen NEGATIVE NEGATIVE My Orders Orders - KORIN HENDRIX MD Bladder Scan (03/03/22 19:37) Drug Screen Stat (Urine) (03/03/22 19:38) Ua Culture If Indicated (03/03/22 19:38) Ct Abdomen/Pelvis Wo (03/03/22 19:50) Cbc With Automated Diff (03/03/22 19:50) Comprehensive Metabolic Panel (03/03/22 19:50) Ed Iv/Invasive Line Start (03/03/22 19:51) Ns Iv 1000 Ml (Sodium Chloride 0.9%) (03/03/22 20:00) Ketorolac Injection (Toradol Injection) (03/03/22 20:00) Tamsulosin Capsule (Flomax Capsule) (03/03/22 22:10) Medications Given in ED Current Medications Medications Dose Ordered Sig/Ana Route Start Time Stop Time Status Last Admin Dose Admin Ketorolac Tromethamine 15 mg ONCE ONCE IVP 03/03/22 20:00 03/03/22 20:01 DC 03/03/22 19:59 15 MG Vital Signs/I&O 03/03/22 19:38 Temp 36.2 Pulse 61 Resp 16 B/P (MAP) 127/83 (98) Pulse Ox 97 O2 Delivery Room Air Capillary Refill : Progress Note : Progress Note 1. URINARY RETENTION/: - CT ABD:unremarkable - UA/ UDS/CBC/ CMP:unremarkable - NS IVF bolus STAT/ Toradol 15mg iv STAT - Flomax tab STAT in ER - Prescription for Flomax - Follow up with Urology in 3 to 5 days to rule out BPH -The patient was seen in the ED, and treated appropriately to presentation at a specific point in time. Patient is informed that there is a possibility that disease and illness can evolve and change in acuity rapidly or slowly after patient is discharged from the ER. Precautionary advice given to the patient for immediate return to ER if symptoms worsen or do not resolve, and to seek emergency care sooner rather than later. Pt also advised on the importance of PCP follow up and compliance with management and follow up plan with PCP and/or specialist, as this is part of the management plan. Pt verbally expressed understanding. Diagnostic Imaging Diagonstic Imaging: CT Plain Films/CT/US/NM/MRI: abdomen Comments - Prescription for Flomax - Follow up with Urology in 3 to 5 days to rule out BPH - Return to ER if symptoms worsen Departure Impression Primary Impression: Urinary retention due to benign prostatic hyperplasia Disposition: HOME, SELF-CARE Condition: Improved Departure-Patient Inst. Referrals: MCKINLEY TAYLOR MD (PCP/Family) Primary Care Physician JOELLE HAYDEN MD Patient Instructions: Urinary Retention, Benign Prostatic Hyperplasia (Enlarged Prostate) Add. Discharge Instructions: - Prescription for Flomax - Follow up with Urology in 3 to 5 days to rule out BPH. Call for appointment -Return to ER if symptoms worsen Scripts Tamsulosin HCl (Flomax) 0.4 Mg Cap 0.4 MG PO DAILY for 7 Days, #7 CAP Prov: KORIN HENDRIX MD 03/03/22 KORIN HENDRIX MD Mar 03, 2022 19:37
[2022-03-03] MEDS ORDERED: NS IV 1000 ML 1,000 ML IV SCH (20:00)
[2022-03-03] MEDS ORDERED: KETOROLAC 30 MG/ML VIAL IVP ONE (20:00)
[2022-03-03 20:17] LABS: BASOPHILS # (AUTO) 0.1 10^3/uL (0.0-0.1); BASOPHILS % (AUTO) 1 % (0-10); EOSINOPHILS # (AUTO) 0.1 10^3/uL (0.0-0.3); EOSINOPHILS % (AUTO) 1 % (0-10); HEMATOCRIT 41 % (40-54); HEMOGLOBIN 14.5 g/dL (13.3-17.7); LYMPHOCYTES # (AUTO) 2.9 10^3/uL (1.0-4.0); LYMPHOCYTES % (AUTO) 38 % (12-44); MEAN CORPUSCULAR HEMOGLOBIN 29 pg (25-34); MEAN CORPUSCULAR HGB CONC 35 g/dL (32-36); MEAN CORPUSCULAR VOLUME 83 fL (80-99); MEAN PLATELET VOLUME 9.7 fL (9.0-12.2); MONOCYTES # (AUTO) 0.7 10^3/uL (0.0-1.0); MONOCYTES % (AUTO) 9 % (0-12); NEUTROPHILS # (AUTO) 3.8 10^3/uL (1.8-7.8); NEUTROPHILS % (AUTO) 51 % (42-75); PLATELET COUNT 261 10^3/uL (130-400); WHITE BLOOD COUNT 7.6 10^3/uL (4.3-11.0)
[2022-03-03 20:20] LABS: BILIRUBIN,URINE NEGATIVE (NEGATIVE); CLARITY,URINE CLEAR; COLOR,URINE YELLOW; GLUCOSE, URINE (UA) NEGATIVE (NEGATIVE); KETONES,URINE NEGATIVE (NEGATIVE); LEUKOCYTE ESTERASE ,URINE NEGATIVE (NEGATIVE); NITRITE,URINE NEGATIVE (NEGATIVE); PROTEIN,URINE NEGATIVE (NEGATIVE)
[2022-03-03 20:31] LABS: BACTERIA,URINE NEGATIVE /HPF; SQUAMOUS EPITHELIAL CELL,UR RARE /HPF; WBC,URINE RARE /HPF
[2022-03-03 20:32] LABS: AMPHETAMINE SCREEN, URINE NEGATIVE (NEGATIVE); BARBITURATE SCREEN URINE NEGATIVE (NEGATIVE); BENZODIAZEPINES SCREEN URINE NEGATIVE (NEGATIVE); CANNABINOID SCREEN, URINE NEGATIVE (NEGATIVE); COCAINE SCREEN URINE NEGATIVE (NEGATIVE); METHADONE STAT NEGATIVE (NEGATIVE); OPIATE SCREEN URINE POSITIVE (NEGATIVE); OXYCODONE STAT NEGATIVE (NEGATIVE); PROPOXYPHENE STAT NEGATIVE (NEGATIVE); TRICYCLIC ANTIDEPRESSANTS SCRE NEGATIVE (NEGATIVE)
--- NOTE | 2022-03-03 20:56 | Diagnostic Imaging Report ---
PROCEDURE: CT abdomen and pelvis without contrast. TECHNIQUE: Multiple contiguous axial images were obtained through the abdomen and pelvis without the use of intravenous contrast. Auto Exposure Controls were utilized during the CT exam to meet ALARA standards for radiation dose reduction. INDICATION: Urinary retention. Unenhanced images of liver and spleen reveal occasional calcified granulomas without other focal lesion. Additional calcifications are seen within portacaval lymph nodes. There is no evidence of adrenal gland or pancreatic abnormality. Kidneys are also unremarkable in appearance without evidence of hydronephrosis. No localized inflammation is seen within the abdomen or pelvis. There is no evidence of organized fluid collection. IMPRESSION: No acute abnormality is identified. There is evidence of granulomatous residua. Dictated by: Dictated on workstation # [id number]
[2022-03-03 22:00] LABS: BILIRUBIN,TOTAL 0.2 MG/DL (0.1-1.0); BUN/CREATININE RATIO 19; CALCIUM 9.7 MG/DL (8.5-10.1); CARBON DIOXIDE 24 MMOL/L (21-32); CHLORIDE 106 MMOL/L (98-107); CREATININE SERUM 0.94 MG/DL (0.60-1.30); GFR ESTIMATED 104; GLUCOSE 93 MG/DL (70-105); SODIUM 141 MMOL/L (135-145)
[2022-03-03 22:01] LABS: ALANINE AMINOTRANSFERASE 34 U/L (0-55); ALBUMIN 4.9 GM/DL (3.2-4.5); ALKALINE PHOSPHATASE 83 U/L (40-136); TOTAL PROTEIN 7.6 GM/DL (6.4-8.2)
[2022-03-03] MEDS ORDERED: TAMSULOSIN 0.4 MG (FLOMAX) CAP PO STA (22:10)
[2022-03-03] MEDS ORDERED: TMSL.4C PO (22:26)
[2022-03-03 22:27] VITALS: BP 116/80
== END 2022-03-03 22:29 | disposition home or self-care (01) ==
LOC: EDUNIT# 19:34 → ER FS 19:35
DX: N40.1 Benign prostatic hyperplasia with lower urinary tract symptoms (principal); Z28.310 Unvaccinated for COVID-19
CPT/HCPCS: 36415; 74176; 80053; 80306; 81000; 85025

== ENCOUNTER → 2022-05-30 | Outpatient (CLI) | payer OTHER ==
[~2022-05-30] MED LIST changes: +TMSL.4C PO
--- NOTE | 2022-05-30 14:37 | Diagnostic Imaging Report ---
Indication: Hematuria. Time of Exam: 11:38 AM Bowel gas pattern is nonobstructive. Moderate stool in the right colon. No definite radiopaque urinary tract calculi are seen. There is no free air. IMPRESSION: No acute abnormality is identified. Dictated by: Dictated on workstation # [id number]
== END ==
LOC: RAD FS 11:25
PROVIDERS: ATTEND Urology
DX: R31.9 Hematuria, unspecified (principal)
CPT/HCPCS: 74018